=== PATIENT | male | born 1955 | race Caucasian/White ===

== ENCOUNTER 2017-01-01 01:21 | Emergency (ER) | payer BC, MEDICAID ==
[~2017-01-01] VITALS: Ht 170.2 cm; Wt 75.0 kg
[~2017-01-01 01:21] MED LIST: CIPR500T4 PO; PHEN-537 PO
[2017-01-01 01:28] VITALS: Ht 170.2 cm; Wt 75.0 kg
--- NOTE | 2017-01-01 02:01 | ERD ---
ER Documentation Chief Complaint Date/Time DATE: 01/01/17 TIME: 02:00 Chief Complaint unable to urinate for 7 hours HPI This is a 61-year-old male comes in with complaints of unable to urinate for the past 7 hours. Patient denies any fevers chills nausea vomiting. ROS All systems reviewed and are negative except as per history of present illness. Medications Home Meds Active Scripts Ciprofloxacin Hcl* (Ciprofloxacin Hcl*) 500 Mg Tablet, 500 MG PO BID for 14 Days , TAB Prov:MERLIN SÁNCHEZ DO 02/14/16 Phenazopyridine Hcl* (Pyridium*) 100 Mg Tab, 100 MG PO TID Y for URINARY PAIN, # 8 TAB Prov:MERLIN SÁNCHEZ DO 02/14/16 Allergies Allergies: Coded Allergies: No Known Allergy (Unverified , 02/14/16) PMhx/Soc History of Surgery: Yes (kidney stone removal, nose skin biopsy) Anesthesia Reaction: No Hx Neurological Disorder: No Hx Respiratory Disorders: No Hx Cardiac Disorders: No Hx Psychiatric Problems: No Hx Miscellaneous Medical Probl: Yes (urinary retention) Hx Alcohol Use: Yes Hx Substance Use: No Hx Tobacco Use: Yes Physical Exam Vitals Vital Signs Date Time Temp Pulse Resp B/P Pulse Ox O2 Delivery O2 Flow Rate FiO2 01/01/17 01:28 98.6 111 20 198/123 97 Physical Exam Const: [] Head: Atraumatic Eyes: Normal Conjunctiva ENT: Normal External Ears, Nose and Mouth. Neck: Full range of motion..~ No meningismus. Resp: Clear to auscultation bilaterally Cardio: Regular rate and rhythm, no murmurs Abd: Soft, non tender, non distended. Normal bowel sounds Skin: No petechiae or rashes Back: No midline or flank tenderness Ext: No cyanosis, or edema Neur: Awake and alert Psych: Normal Mood and Affect Procedures/MDM Regular decision-making: Very pleasant patient comes in with urinary retention. Esparza catheter placed. Discharged home with leg bag. Started on Cipro. Follow-up with PCP for urology referral Departure Diagnosis: Primary Impression: Urinary retention Condition: Stable [facility]ICKS Jan 01, 2017 02:01
[2017-01-01] MEDS ORDERED: CIPR500T4 PO (02:03)
[2017-01-01 02:31] VITALS: BP 155/94; PULSE 75; RESP 28; TEMP 98.4
[2017-01-01 03:00] LABS: ADD UMIC YES; UR ASCORBIC ACID NEGATIVE (NEGATIVE); UR BILIRUBIN (Dip) NEGATIVE (NEGATIVE); UR BLOOD (Dip) 1+ mg/dL (NEGATIVE); UR CLARITY CLEAR (CLEAR); UR COLOR YELLOW (YELLOW); UR GLUCOSE (Dip) NEGATIVE (NEGATIVE); UR KETONES (Dip) NEGATIVE (NEGATIVE); UR LEUKOCYTE ESTERASE (Dip) NEGATIVE Leu/ul (NEGATIVE); UR NITRITE (Dip) NEGATIVE (NEGATIVE); UR SPECIFIC GRAVITY (Dip) 1.013 (1.003-1.030); UR TOTAL PROTEIN (Dip) 1+ mg/dl (NEGATIVE); UR UROBILINOGEN (Dip) NEGATIVE (NEGATIVE)
[2017-01-01 03:01] LABS: UR RBC 12 /HPF (0-5)
== END 2017-01-01 02:31 | disposition home or self-care (01) ==
LOC: E/R 01:21
DX: R33.9 Retention of urine, unspecified (principal); Z87.891 Personal history of nicotine dependence
CPT/HCPCS: 81001; 87086